=== PATIENT | female | born 1985 | race Caucasian/White ===

== ENCOUNTER 2016-07-18 14:12 | Emergency (ER) | payer MEDICARE, MEDICAID ==
[~2016-07-18 14:12] MED LIST: FOLI1TAB6 PO; LEVE500T22 PO; PRENCAP61 PO
[2016-07-18 14:28] VITALS: BP 140/84
[2016-07-18 15:27] LABS: Basophils # (auto) 0 uL; Basophils % (auto) 0.2 % (0.0-2.0); Eosinophils # (auto) 0 uL; Eosinophils % (auto) 0.1 % (0.0-7.0); Hematocrit 43.2 % (36.0-46.0); Hemoglobin 14.3 g/dL (12.2-16.2); Lymphocytes # (auto) 1.3 uL; Mean Corpuscular Hgb Conc. 33.1 g/dL (32.0-36.0); Mean Corpuscular Volume 90.6 fL (80.0-100.0); Mean Platelet Volume 9.5 fL (7.4-10.4); Monocytes # (auto) 0.5 uL; Monocytes % (auto) 4.3 % (0.0-12.0); Neutrophils # (auto) 9.4 uL; Neutrophils % (auto) 83.4 % (37.0-80.0); Platelet Count (auto) 326 10^3/uL (140-450); Red Cell Distribution Width 13.2 % (11.6-16.0); White Blood Cell 11.3 10^3/uL (4.4-10.8)
[2016-07-18 15:52] LABS: Albumin 4.4 g/dL (3.4-5.0); BUN/Creatinine Ratio 7.6; Bilirubin, Total 0.5 mg/dL (0.2-1.0); Calcium 9.4 mg/dL (8.5-10.1); Potassium 3.6 mmol/L (3.5-5.1); Total Protein 7.9 g/dL (6.4-8.2)
[2016-07-18] MEDS ORDERED: LORazepam 2MG/ML-1ML VIAL IM ONE (16:15)
== END 2016-07-18 16:51 | disposition home or self-care (01) ==
LOC: EDBD 14:12 → ER 14:12
DX: F41.1 Generalized anxiety disorder (principal); J45.909 Unspecified asthma, uncomplicated; F12.10 Cannabis abuse, uncomplicated; Z88.5 Allergy status to narcotic agent; Z88.0 Allergy status to penicillin
CPT/HCPCS: 36415; 80053; 80320; 85025; 96372; 99284; J2060

== ENCOUNTER 2016-12-22 21:24 | Emergency (ER) | payer MEDICARE, MEDICAID ==
[~2016-12-22] VITALS: Ht 149.9 cm; Wt 63.5 kg
[2016-12-22 22:07] LABS: Urine Bilirubin Negative (Negative); Urine Blood Negative /uL (Negative); Urine Color Yellow (Yellow); Urine Glucose Normal (Normal); Urine Hyaline Cast FEW /lpf (0 - 2); Urine Ketone TRACE (Negative); Urine Mucus FEW (None Seen); Urine Nitrite Negative (Negative); Urine RBC <1 /hpf (0 - 4); Urine Squamous Epithelial Cell FEW /hpf (<5)
[2016-12-22 22:31] LABS: Basophils # (auto) 0 uL; Basophils % (auto) 0.3 % (0.0-2.0); CONDITION Y; Eosinophils # (auto) 0.1 uL; Eosinophils % (auto) 0.9 % (0.0-7.0); Hematocrit 43.4 % (36.0-46.0); Hemoglobin 14.5 g/dL (12.2-16.2); Lymphocytes # (auto) 2.2 uL; Lymphocytes % (auto) 21.8 % (10.0-50.0); Mean Corpuscular Hemoglobin 30.3 pg (28.0-32.0); Mean Corpuscular Hgb Conc. 33.3 g/dL (32.0-36.0); Mean Corpuscular Volume 91.1 fL (80.0-100.0); Mean Platelet Volume 9.8 fL (7.4-10.4); Monocytes # (auto) 0.6 uL; Monocytes % (auto) 5.7 % (0.0-12.0); Neutrophils # (auto) 7.3 uL; Neutrophils % (auto) 71.3 % (37.0-80.0); Platelet Count (auto) 341 10^3/uL (140-450); Red Cell Distribution Width 13.9 % (11.6-16.0); White Blood Cell 10.2 10^3/uL (4.4-10.8)
[2016-12-22 22:50] LABS: INR 1.05 (0.9-1.15); Partial Thromboplastin Time 25.1 sec (22.64-33.71); Prothrombin Time 11.5 sec (9.37-12.3)
[2016-12-22 23:02] LABS: Albumin 4.3 g/dL (3.4-5.0); Alkaline Phosphatase 82 U/L (45-117); Anion Gap 9 (5-15); Aspartate Aminotransferase 10 U/L (15-37); BUN/Creatinine Ratio 7.3; Bilirubin, Total 0.6 mg/dL (0.2-1.0); Blood Urea Nitrogen 8 mg/dL (7-18); Calcium 9.7 mg/dL (8.5-10.1); Carbon Dioxide 26 mmol/L (21-32); Chloride 104 mmol/L (98-107); GFR African American 75 mL/min; GFR Non-African American 62 mL/min; Glucose 109 mg/dL (74-106); Potassium 3.7 mmol/L (3.5-5.1); Sodium 139 mmol/L (136-145); Total Protein 7.6 g/dL (6.4-8.2)
[2016-12-23] MEDS ORDERED: LEVETIRACETAM 500 MG TAB PO ONE (04:45)
[2016-12-23] MEDS ORDERED: LORazepam 0.5 MG TAB PO ONE (05:00)
[2016-12-23] MEDS ORDERED: LORazepam 2MG/ML-1ML VIAL IV ONE (05:00)
[2016-12-23 05:21] VITALS: BP 108/73
== END 2016-12-23 04:48 | disposition home or self-care (01) ==
LOC: EDBD 21:24 → ER 21:25
DX: G40.909 Epilepsy, unspecified, not intractable, without status epilepticus (principal); R42 Dizziness and giddiness; J45.909 Unspecified asthma, uncomplicated; F41.0 Panic disorder [episodic paroxysmal anxiety]; Z91.14 Patient's other noncompliance with medication regimen; Z76.0 Encounter for issue of repeat prescription
CPT/HCPCS: 36415; 71010; 80053; 80307; 81001; 81025; 84484; 85025; 85610; 85730; 93005; 99285; J7030

== ENCOUNTER 2018-08-12 15:24 | Emergency (ER) | payer MEDICARE, MEDICAID ==
[~2018-08-12] VITALS: Ht 162.6 cm; Wt 61.2 kg
[~2018-08-12 15:24] MED LIST changes: +OMEP20CA74 PO; +ONDA4TAB5 PO; +OXCA150T61 OR; +[UNRECOGNIZED DRUG - CODE] PO
[2018-08-12] MEDS ORDERED: KETOROLAC TROMETH 30 MG/ML 1ML VIAL IV ONE (16:00)
[2018-08-12 16:16] LABS: Basophils # (auto) 0 uL; Basophils % (auto) 0.4 % (0.0-2.0); Eosinophils # (auto) 0 uL; Eosinophils % (auto) 0.3 % (0.0-7.0); Hematocrit 42.6 % (36.0-46.0); Hemoglobin 14.2 g/dL (12.2-16.2); Lymphocytes # (auto) 1.6 uL; Lymphocytes % (auto) 15.6 % (10.0-50.0); Mean Corpuscular Hgb Conc. 33.2 g/dL (32.0-36.0); Mean Corpuscular Volume 93.3 fL (80.0-100.0); Monocytes # (auto) 0.6 uL; Monocytes % (auto) 5.9 % (0.0-12.0); Neutrophils # (auto) 8.2 uL; Neutrophils % (auto) 77.8 % (37.0-80.0); Platelet Count (auto) 252 10^3/uL (140-450); Red Blood Cells 4.57 10^6/uL (4.0-5.20); Red Cell Distribution Width 12.8 % (11.8-14.3); White Blood Cell 10.6 10^3/uL (4.4-10.8)
[2018-08-12 16:26] LABS: Potassium 3.6 mmol/L (3.5-5.1)
[2018-08-12 16:29] LABS: Albumin 4.1 g/dL (3.4-5.0)
[2018-08-12 16:35] LABS: BUN/Creatinine Ratio 4.6; Bilirubin, Total 0.3 mg/dL (0.2-1.0); Total Protein 7.3 g/dL (6.4-8.2)
[2018-08-12 18:55] VITALS: BP 134/86
== END 2018-08-12 19:50 | disposition left against medical advice (07) ==
LOC: EDBD 15:24 → ER 15:36
DX: F41.9 Anxiety disorder, unspecified (principal); G89.4 Chronic pain syndrome; R42 Dizziness and giddiness; R51 Headache; F12.10 Cannabis abuse, uncomplicated; J45.909 Unspecified asthma, uncomplicated; Z90.49 Acquired absence of other specified parts of digestive tract; Z90.710 Acquired absence of both cervix and uterus; Z87.11 Personal history of peptic ulcer disease
CPT/HCPCS: 36415; 80053; 85025; 93005